=== PATIENT | male | born 1970 | race Caucasian/White ===

== ENCOUNTER 2020-04-24 22:24 | Observation (INO) ==
--- NOTE | 2020-04-24 22:40 | DR.GENAD ---
HPI Time Seen Time Seen by Provider: 04/24/20 22:39 COVID-19 Coronavirus risk:travel/contact w/high risk person: No Has patient experienced Coronavirus symptoms: No Nurses notes reviewed Nurses Notes Review: Yes Source History Provided: Patient Mode of Arrival Mode of Arrival: Stretcher Timing Came on: Suddenly Duration Duration: Constant Duration: Hours Severity Severity: Moderate PMH PMH Past Medical History: Hypertension Past Surgical History: Yes Family History Family Medical History: Cancer Social History Do you use any recreational Drugs:: No ROS Review of Systems Constitutional: No Symptoms Reported and See HPI Eyes: No Symptoms Reported and See HPI ENTM: No Symptoms Reported and See HPI Respiratoy: No Symptoms Reported and See HPI Cardiovascular: No Symptoms Reported and See HPI Gastrointestinal/Abdominal: No Symptoms Reported Genitourinary: No Symptoms Reported and See HPI Neurological: No Symptoms Reported and See HPI Musculoskeletal: No Symptoms Reported and See HPI Integumentary: No Symptoms Reported and See HPI Hematologic/Lymphatic: No Symptoms Reported and See HPI Endocrine: No Symptoms Reported and See HPI Psychiatric: No Symptoms Reported and See HPI All Other Systems: Reviewed and Negative PE Vital Signs Vitals: Temperature 98.2 F Pulse Rate [Apical] 89 Pulse Rate 92 Respiratory Rate 18 Blood Pressure [Right Arm] 138/88 Blood Pressure 109/74 O2 Sat by Pulse Oximetry 98 General Limitations: No Limitations General Appearance: Alert and In No Apparent Distress Head Head Exam: Normal Inspection Eyes Eye exam: Normal Appearance and PERRL; negative Scleral Icterus and Conjunctival Injection ENT ENT Exam: Normal Exam, Normal Oropharynx, Normal External Ear Exam and TM's Normal Bilaterally External Ear Exam: Normal External Inspection; negative Mastoid Tenderness TM/Canal Exam: Bilateral: Normal Nose Exam: Normal Nose Exam; negative Sinus Tenderness Mouth Exam: Normal Inspection Throat Exam: Normal Inspection; negative Tonsillar Erythema, Tonsillar Exudate and L Peritonsillar Mass Neck Neck Exam: Normal Inspection and Trachea Midline; negative Tenderness and Lym phadenopathy Chest Chest Inspection: Normal Inspection and Symmetric Chest Wall Rise; negative Tenderness Respiratory Respiratory Exam: Normal Lung Sounds Bilat; negative Accessory Muscle Use, Chest Wall Tenderness and Respiratory Distress Respiratory Exam: Bilateral: Clear to Auscultation Cardiovascular Cardiovascular Exam: Regular Rate, Normal Rhythm and Normal Heart Sounds; negative Systolic Murmur and Diastolic Murmur Abdominal Exam Abdominal Exam: Normal Inspection, Normal Bowel Sounds and Soft; negative Tenderness Extremities Extremities Exam: Normal Inspection, Tenderness and Normal Capillary Refill; negative Edema and Calf Tenderness Back Back Exam: Normal Inspection; negative Tenderness, (R) CVA Tenderness and (L) CVA Tenderness Neurologic Neurological Exam: Alert, Oriented X3 and CN II-XII Intact; negative Motor Sensory Deficit Psychiatric Psychiatric Exam: Normal Affect and Normal Mood Skin Skin Exam: Warm, Dry, Intact and Normal Color MDM Additional Information Additional Information Obtained From: Old Records and Family Differential Diagnosis Differential Diagnosis: RIGHT SIDED WEAKNESS, DYSARTHRIA, TIA, COURSE Treatment Treatment: SEE ORDERS. Education/Counseling Education/Counseling: Patient and Family Educated On: Diagnosis ROR Labs Reviewed Laboratory Results Reviewed?: Yes Result Diagrams: 04/24/20 23:14 04/24/20 23:14 Laboratory: WBC 7.8 X10^3/uL (3.6-10.0) 04/24/20 23:14 RBC 4.77 X10^6/uL (4.7-6.0) 04/24/20 23:14 Hgb 13.4 g/dL (13.5-18.0) L 04/24/20 23:14 Hct 41.3 % (42.0-54.0) L 04/24/20 23:14 MCV 86.7 fL (80.0-100.0) 04/24/20 23:14 MCH 28.0 pg (27.0-34.0) 04/24/20 23:14 MCHC 32.3 g/dL (33.0-35.0) L 04/24/20 23:14 RDW 18.8 % (11.6-16.5) H 04/24/20 23:14 Plt Count 202 X10^3/uL (150.0-450.0) 04/24/20 23:14 MPV 8.3 fL (7.4-11.0) 04/24/20 23:14 Neut % (Auto) 70.7 % (42.0-75.0) 04/24/20 23:14 Lymph % (Auto) 18.4 % (21.0-51.0) L 04/24/20 23:14 [place] % (Auto) 7.4 % (0.0-13.0) 04/24/20 23:14 Eos % (Auto) 2.5 % (0.9-2.9) 04/24/20 23:14 Baso % (Auto) 1.0 % (0.2-1.0) 04/24/20 23:14 Neut # (Auto) 5.5 x10^3/uL (2.2-4.8) H 04/24/20 23:14 Lymph # (Auto) 1.4 X10^3/uL (1.3-2.9) 04/24/20 23:14 [place] # (Auto) 0.6 x10^3/uL (0.3-0.8) 04/24/20 23:14 Eos # (Auto) 0.2 x10^3/uL (0.0-0.2) 04/24/20 23:14 Baso # (Auto) 0.1 X10^3/uL (0.0-0.1) 04/24/20 23:14 Absolute Nucleated RBC 0.0 /100WBC 04/24/20 23:14 Sodium 143 mmol/L (136-145) 04/24/20 23:14 Corrected Sodium TNP 04/24/20 23:14 Potassium 4.0 mmol/L (3.5-5.1) 04/24/20 23:14 Chloride 106 mmol/L (98-107) 04/24/20 23:14 Carbon Dioxide 28.2 mmol/L (21-32) 04/24/20 23:14 BUN 17 mg/dL (7-18) 04/24/20 23:14 Creatinine 1.38 mg/dL (0.70-1.30) H 04/24/20 23:14 Est GFR (MDRD) Af Amer > 60 (>60) 04/24/20 23:14 Est GFR (MDRD) Non-Af 58 (>60) L 04/24/20 23:14 Glucose 103 mg/dL (65-99) H 04/24/20 23:14 Calcium 8.2 mg/dL (8.5-10.1) L 04/24/20 23:14 Corrected Calcium 8.8 mg/dL (8.5-10.1) 04/24/20 23:14 Total Bilirubin 0.70 mg/dL (0.2-1.0) 04/24/20 23:14 AST 20 Units/L (15-37) 04/24/20 23:14 ALT 19 Units/L (12-78) 04/24/20 23:14 Alkaline Phosphatase 107 Units/L (46-116) 04/24/20 23:14 Creatine Kinase 63 Units/L (39-308) 04/25/20 02:05 CK-MB (CK-2) 1.9 ng/mL (0-4.0) 04/25/20 02:05 CK/CKMB % Calc 3.0 % (<4) 04/25/20 02:05 Troponin I 0.04 ng/mL (0-1.5) 04/25/20 02:05 Total Protein 6.5 g/dL (6.4-8.2) 04/24/20 23:14 Albumin 3.2 g/dL (3.4-5.0) L 04/24/20 23:14 Globulin 3.3 g/dL (2.5-4.5) 04/24/20 23:14 Albumin/Globulin Ratio 1.0 Ratio (1.1-2.1) L 04/24/20 23:14 Specimen Type Clean catch urine 04/24/20 22:55 Urine Color Yellow (YELLOW) 04/24/20 22:55 Urine Appearance Clear (CLEAR) 04/24/20 22:55 Urine pH 6.0 (5.0 - 8.0) 04/24/20 22:55 Ur Specific [place] 1.015 (1.000-1.030) 04/24/20 22:55 Urine Protein 1+ (NEGATIVE) 04/24/20 22:55 Urine Glucose (UA) Negative (NEGATIVE) 04/24/20 22:55 Urine Ketones Negative (NEGATIVE) 04/24/20 22:55 Urine Occult Blood Negative (NEGATIVE) 04/24/20 22:55 Urine Nitrite Negative (NEGATIVE) 04/24/20 22:55 Urine Bilirubin Negative (NEGATIVE) 04/24/20 22:55 Urine Urobilinogen Normal (NORMAL) 04/24/20 22:55 Ur Leukocyte Esterase Negative (NEGATIVE) 04/24/20 22:55 Urine RBC None seen /HPF (0-3) 04/24/20 22:55 Urine WBC None seen /HPF (0-5) 04/24/20 22:55 Ur Squamous Epith Cells Rare /HPF (NEGATIVE) 04/24/20 22:55 Urine Bacteria Negative /HPF (NEGATIVE) 04/24/20 22:55 Ur Culture Indicated? No/not indicated 04/24/20 22:55 Urine Opiates Screen Negative (NEG=<300) 04/24/20 22:55 Urine Methadone Screen Negative (NEG=<300) 04/24/20 22:55 Ur Barbiturates Screen Negative (NEG=<200) 04/24/20 22:55 Ur Phencyclidine Scrn Negative (NEG=<25) 04/24/20 22:55 Ur Amphetamines Screen Negative (NEG=<1000) 04/24/20 22:55 U Benzodiazepines Scrn Negative (NEG=<200) 04/24/20 22:55 Urine Cocaine Screen Negative (NEG=<300) 04/24/20 22:55 U Marijuana (THC) Screen Positive (NEG=<50) A 04/24/20 22:55 XRAY XRAY Interpreted by: Radiologist (REPORT NOTED AND DISCUSSED WITH PATIENT.) and Self (NO ACUTE FINDINGS.) EKG Rate: 86 [place]: Normal Rhythm: NSR Block: None and AVB Hypertrophy: None and LAE ST: Normal Opioid Opioid Risk Tool Age (Jv box if 16-45): No History of Preadolescent Sexual Abuse: No Total: 0 Total Score Risk Category: Low Risk Copyright: Masoud JIMENEZ predicting aberrant behaviors Diagnosis Discharge Problem: Right sided weakness, Abnormal ECG, Abnormal cardiac enzyme level Instructions Forms: Excuse From Work Precautions for COVID19 Patient Portal Social Distancing
[2020-04-24 22:48] VITALS: BMI 33.5
--- NOTE | 2020-04-24 23:23 | CT ---
HISTORYStatus post fallSTUDYBRAIN W/O CONCOMPARISONNoneTECHNIQUEContiguous axial sections were obtained from the craniovertebral junction through the vertex using brain and bone algorithms. IV contrast was not administered. Dose reduction techniques including Automated Exposure Control (AEC) and adjustment of mA and kV were utilized.FINDINGSNo focal soft tissue swelling/hematoma identified. The brain and ventricles are normal in appearance without evidence of mass, hemorrhage, hydrocephalus, or other lesion.The calvarium and the cranial base including the sella, middle ears, and mastoids are unremarkable.The visualized orbits are within normal limits. Minimal mucosal thickening of the left maxillary sinus.IMPRESSIONNo acute intracranial process.Mild sinus disease as detailed.Electronically signed by: Jessica Arceo (Apr 24, 2020 23:22:23)
--- NOTE | 2020-04-24 23:27 | RAD ---
HISTORYPT STATES" I WAS GETTING IN THE BED AND WAS PULLING THE COVER UP AND I FELL OFF THE BED. I COULDN'T MOVE MY RT SIDE IT WAS STRANGE"STUDYCHEST, 1 [id number] trachea is midline. The cardiac silhouette is enlarged, similar to prior exam. The lungs are clear without focal infiltrate or effusion. The bony thorax is unremarkable.IMPRESSIONStable cardiomegaly.Electronically signed by: Jessica Arceo (Apr 24, 2020 23:25:45)
[2020-04-24 23:30] LABS: BILIRUBIN,URINE NEGATIVE (NEGATIVE); BLOOD/HEMOGLOBIN,URINE NEGATIVE (NEGATIVE); GLUCOSE, URINE NEGATIVE (NEGATIVE); KETONES,URINE NEGATIVE (NEGATIVE); LEUKOCYTE ESTERASE ,URINE NEGATIVE (NEGATIVE); NITRITES,URINE NEGATIVE (NEGATIVE); PROTEIN,URINE 1+ (NEGATIVE); UROBILINOGEN,URINE NORMAL (NORMAL)
[2020-04-24 23:31] LABS: BASOPHILS # (AUTO) 0.1 X10^3/uL (0.0-0.1); EOSINOPHILS # (AUTO) 0.2 x10^3/uL (0.0-0.2); EOSINOPHILS % (AUTO) 2.5 % (0.9-2.9); HEMATOCRIT 41.3 % (42.0-54.0); HEMOGLOBIN 13.4 g/dL (13.5-18.0); LYMPHOCYTES # (AUTO) 1.4 X10^3/uL (1.3-2.9); LYMPHOCYTES % (AUTO) 18.4 % (21.0-51.0); MEAN CORPUSCULAR HGB CONC 32.3 g/dL (33.0-35.0); MEAN CORPUSCULAR VOLUME 86.7 fL (80.0-100.0); MEAN PLATELET VOLUME 8.3 fL (7.4-11.0); MONOCYTES # (AUTO) 0.6 x10^3/uL (0.3-0.8); MONOCYTES % (AUTO) 7.4 % (0.0-13.0); NEUTROPHILS # (AUTO) 5.5 x10^3/uL (2.2-4.8); NEUTROPHILS % (AUTO) 70.7 % (42.0-75.0); PLATELET COUNT 202 X10^3/uL (150.0-450.0); RED BLOOD COUNT 4.77 X10^6/uL (4.7-6.0); RED CELL DISTRIBUTION WIDTH 18.8 % (11.6-16.5); WHITE BLOOD COUNT 7.8 X10^3/uL (3.6-10.0)
[2020-04-24 23:45] LABS: APPEARANCE,URINE CLEAR (CLEAR); BACTERIA,URINE NEGATIVE /HPF (NEGATIVE); COLOR,URINE YELLOW (YELLOW); RBC,URINE NONE SEEN /HPF (0-3); SQUAMOUS EPITHELIAL CELL,UR RARE /HPF (NEGATIVE)
[2020-04-24 23:47] LABS: BLOOD UREA NITROGEN 17 mg/dL (7-18); CALCIUM 8.2 mg/dL (8.5-10.1); CARBON DIOXIDE 28.2 mmol/L (21-32); CHLORIDE 106 mmol/L (98-107); CREATININE 1.38 mg/dL (0.70-1.30); SODIUM 143 mmol/L (136-145); TROPONIN I 0.04 ng/mL (0-1.5); eGFR NON BLACK RACES 58 (>60)
[2020-04-24 23:51] LABS: ALANINE AMINOTRANSFERASE 19 Units/L (12-78); ALBUMIN 3.2 g/dL (3.4-5.0); ALKALINE PHOSPHATASE 107 Units/L (46-116); ASPARTATE AMINO TRANSFERASE 20 Units/L (15-37); CKMB % 3.4 % (<4); COR CA(FOR HYPOALB) 8.8 mg/dL (8.5-10.1); CREATINE KINASE 67 Units/L (39-308); CREATINE KINASE MB 2.3 ng/mL (0-4.0); TOTAL PROTEIN 6.5 g/dL (6.4-8.2)
[2020-04-25 02:29] LABS: CREATINE KINASE MB 1.9 ng/mL (0-4.0); TROPONIN I 0.04 ng/mL (0-1.5)
[2020-04-25] MEDS ORDERED: ASPIRIN 81 MG CHEWTAB PO ONE ×2 (03:39→03:44)
[2020-04-25] MEDS ORDERED: ASPIRIN 81 MG CHEWTAB ONE ×2 (03:40→03:46)
[2020-04-25] MEDS ORDERED: NS 1000 ML 1,000 ML IV SCH (08:00)
[2020-04-25] MEDS ORDERED: ATIVAN INJ 2 MG VIAL ONE (09:09)
[2020-04-25] MEDS ORDERED: ATIVAN INJ 2 MG VIAL IVP ONE (09:30)
--- NOTE | 2020-04-25 10:13 | MRI ---
HISTORYRT SIDED WEAKNESSSTUDYBRAIN W/O CONCOMPARISONCT brain dated 04/24/2020TECHNIQUEMultiplanar multi sequences images through the brain were performed without contrastFINDINGSVentricles are normal in size and symmetric, there is an acute infarct involving the lateral aspect of the left thalamus as well as the medial left temporal lobe,with signal on diffusion with restriction. There is mild high signal on FLAIR images suggestive of more than 24 hours. There is minimal periventricular white matter changes. No extra-axial collections. There is no abnormal intraparenchymal susceptibility artifact. Tiny mucous retention cyst in the left maxillary sinus. There is midline anatomy. No sellar masses. No nasopharyngeal masses the cervicocranial junction is unremarkableThe main arterial and venous flow voids are present. No abnormal signal in the mastoid cells and included paranasal sinuses. No orbital masses.IMPRESSIONAcute infarct with restricted diffusion involving the lateral nucleus of the left thalamus and the medial left temporal bone lobe consider [employer]ARM[employer] STOCK CLERK distribution. No acute hemorrhage. No mass effect.Electronically signed by: Merly Hinson (Apr 25, 2020 10:12:14)
[2020-04-25] MEDS ORDERED: LIPITOR TAB 40 MG PO SCH (11:00)
[2020-04-25 12:08] LABS: CKMB % 2.7 % (<4); CREATINE KINASE MB 1.7 ng/mL (0-4.0); TROPONIN I 0.03 ng/mL (0-1.5)
[2020-04-25] MEDS: PROTONIX INJ 40 MG VIAL IVP SCH (12:47)
[2020-04-25] MEDS: ASPIRIN PO SCH ×2 (12:47→12:48)
--- NOTE | 2020-04-25 14:41 | DR.H&P ---
H&P History & Physical for Day of: H&P Date: 04/25/20 Chief Complaint Chief Complaint: right sided weakness Allergies Allergies Allergy/AdvReac Type Severity Reaction Status Date / Time No Known Drug Allergies Allergy Verified 05/06/19 10:12 History of Present Illness History of Present Illness: Mr. Rocha is a 49y/o male with a PMH of non-ischemic cardiomyopathy with EF 15-20%, HTN, HLD, hx of amphetamine use, liver cirrhosis, atrial fibrillation presented with right sided weakness. Patient states he was in bed and talking on the phone when he felt like he could not move his right sided. He was trying to grab the sheet but his hand was weak. He ended up fa lling on the floor and his family brought him to ED. He also had slurred speech. ED work-up: - CT-head: neg for acute process - CXR: stable cardiomegaly -Labs: Cr: 1.38 UDS: marijuana EKG: no acute ST changes. Trop 0.04, 0.03, 0.03 Plan: order MRI to rule out stroke, carotid U/S, echo, neurochecks q1hr, monitor on telemetry. Continue asa and lipitor. PT/OT, speech therapy. Obtain cardiology records from [facility]. Past Medical History Past Medical History: Dyslipidemia, Hypertension and Liver Disease Additional Medical History: Atrial fibrillation Past Surgical History Surgical History: Abdominal Surgery Family History Family Medical History: Cancer, OR, Coronary Artery Disease and Hypertension Social History Does patient currently use any type of tobacco product: Yes Have you used tobacco products in the last 12 months: Yes Type of Tobacco Use: Cigarettes Does any household member use tobacco: Yes Alcohol Use: None Drug Use: Marijuana Medications Home Medications: No Known Drug Allergies Allergy (Verified 05/06/19 10:12) CONTINUE taking the following medications carvedilol 6.25 mg PO BID 04/25/20 [History] furosemide 40 mg PO DAILY 04/25/20 [History] losartan 100 mg PO DAILY 04/25/20 [History] potassium chloride 20 meq PO DAILY 04/25/20 [History] Labs Result Diagrams: 04/26/20 04:47 04/26/20 04:47 Labs: Laboratory WBC 7.8 X10^3/uL (3.6-10.0) 04/24/20 23:14 RBC 4.77 X10^6/uL (4.7-6.0) 04/24/20 23:14 Hgb 13.4 g/dL (13.5-18.0) L 04/24/20 23:14 Hct 41.3 % (42.0-54.0) L 04/24/20 23:14 MCV 86.7 fL (80.0-100.0) 04/24/20 23:14 MCH 28.0 pg (27.0-34.0) 04/24/20 23:14 MCHC 32.3 g/dL (33.0-35.0) L 04/24/20 23:14 RDW 18.8 % (11.6-16.5) H 04/24/20 23:14 Plt Count 202 X10^3/uL (150.0-450.0) 04/24/20 23:14 MPV 8.3 fL (7.4-11.0) 04/24/20 23:14 Neut % (Auto) 70.7 % (42.0-75.0) 04/24/20 23:14 Lymph % (Auto) 18.4 % (21.0-51.0) L 04/24/20 23:14 [place] % (Auto) 7.4 % (0.0-13.0) 04/24/20 23:14 Eos % (Auto) 2.5 % (0.9-2.9) 04/24/20 23:14 Baso % (Auto) 1.0 % (0.2-1.0) 04/24/20 23:14 Neut # (Auto) 5.5 x10^3/uL (2.2-4.8) H 04/24/20 23:14 Lymph # (Auto) 1.4 X10^3/uL (1.3-2.9) 04/24/20 23:14 [place] # (Auto) 0.6 x10^3/uL (0.3-0.8) 04/24/20 23:14 Eos # (Auto) 0.2 x10^3/uL (0.0-0.2) 04/24/20 23:14 Baso # (Auto) 0.1 X10^3/uL (0.0-0.1) 04/24/20 23:14 Absolute Nucleated RBC 0.0 /100WBC 04/24/20 23:14 Sodium 143 mmol/L (136-145) 04/24/20 23:14 Corrected Sodium TNP 04/24/20 23:14 Potassium 4.0 mmol/L (3.5-5.1) 04/24/20 23:14 Chloride 106 mmol/L (98-107) 04/24/20 23:14 Carbon Dioxide 28.2 mmol/L (21-32) 04/24/20 23:14 BUN 17 mg/dL (7-18) 04/24/20 23:14 Creatinine 1.38 mg/dL (0.70-1.30) H 04/24/20 23:14 Est GFR (MDRD) Af Amer > 60 (>60) 04/24/20 23:14 Est GFR (MDRD) Non-Af 58 (>60) L 04/24/20 23:14 Glucose 103 mg/dL (65-99) H 04/24/20 23:14 Calcium 8.2 mg/dL (8.5-10.1) L 04/24/20 23:14 Corrected Calcium 8.8 mg/dL (8.5-10.1) 04/24/20 23:14 Total Bilirubin 0.70 mg/dL (0.2-1.0) 04/24/20 23:14 AST 20 Units/L (15-37) 04/24/20 23:14 ALT 19 Units/L (12-78) 04/24/20 23:14 Alkaline Phosphatase 107 Units/L (46-116) 04/24/20 23:14 Creatine Kinase 63 Units/L (39-308) 04/25/20 11:10 CK-MB (CK-2) 1.7 ng/mL (0-4.0) 04/25/20 11:10 CK/CKMB % Calc 2.7 % (<4) 04/25/20 11:10 Troponin I 0.03 ng/mL (0-1.5) 04/25/20 11:10 Total Protein 6.5 g/dL (6.4-8.2) 04/24/20 23:14 Albumin 3.2 g/dL (3.4-5.0) L 04/24/20 23:14 Globulin 3.3 g/dL (2.5-4.5) 04/24/20 23:14 Albumin/Globulin Ratio 1.0 Ratio (1.1-2.1) L 04/24/20 23:14 Specimen Type Clean catch urine 04/24/20 22:55 Urine Color Yellow (YELLOW) 04/24/20 22:55 Urine Appearance Clear (CLEAR) 04/24/20 22:55 Urine pH 6.0 (5.0 - 8.0) 04/24/20 22:55 Ur Specific [place] 1.015 (1.000-1.030) 04/24/20 22:55 Urine Protein 1+ (NEGATIVE) 04/24/20 22:55 Urine Glucose (UA) Negative (NEGATIVE) 04/24/20 22: Urine Ketones Negative (NEGATIVE) 04/24/20 22:55 Urine Occult Blood Negative (NEGATIVE) 04/24/20 22:55 Urine Nitrite Negative (NEGATIVE) 04/24/20 22:55 Urine Bilirubin Negative (NEGATIVE) 04/24/20 22:55 Urine Urobilinogen Normal (NORMAL) 04/24/20 22:55 Ur Leukocyte Esterase Negative (NEGATIVE) 04/24/20 22:55 Urine RBC None seen /HPF (0-3) 04/24/20 22:55 Urine WBC None seen /HPF (0-5) 04/24/20 22:55 Ur Squamous Epith Cells Rare /HPF (NEGATIVE) 04/24/20 22:55 Urine Bacteria Negative /HPF (NEGATIVE) 04/24/20 22:55 Ur Culture Indicated? No/not indicated 04/24/20 22:55 Urine Opiates Screen Negative (NEG=<300) 04/24/20 22:55 Urine Methadone Screen Negative (NEG=<300) 04/24/20 22:55 Ur Barbiturates Screen Negative (NEG=<200) 04/24/20 22:55 Ur Phencyclidine Scrn Negative (NEG=<25) 04/24/20 22:55 Ur Amphetamines Screen Negative (NEG=<1000) 04/24/20 22:55 U Benzodiazepines Scrn Negative (NEG=<200) 04/24/20 22:55 Urine Cocaine Screen Negative (NEG=<300) 04/24/20 22:55 U Marijuana (THC) Screen Positive (NEG=<50) A 04/24/20 22:55 Review of Systems Constitutional: Weakness Eyes: No Symptoms Reported ENT: No Symptoms Reported Respiratory: Shortness of Breath and SOB with Excertion Cardiovascular: Orthopnea Gastrointestinal: No Symptoms Reported Genitourinary: No Symptoms Reported Musculoskeletal: Arm Pain, Hand Pain and Leg Pain Skin: No Symptoms Reported Neurological: Weakness, Incoordination, Change in Speech and Confusion Physical Exam Vital Signs: Temperature 97.5 F Pulse Rate [Radial] 97 Pulse Rate [Apical] 89 Pulse Rate 85 Respiratory Rate 20 Blood Pressure [Right Arm] 131/84 Blood Pressure 113/75 O2 Sat by Pulse Oximetry 100 Oriented: Normal Eyes: Normal Ear: Normal Nose: Normal Throat: Normal Respiratory: RLL Rales and LLL Rales Cardiovascular: Tachycardia Auscultation: Bowel Sounds: Normal Palpation: Normal and Liver Enlarged Tenderness: Normal and Other (abdomen distended ) Skin: Normal Musculoskeletal: Normal, Right, Left, Arm, Hand and Leg Psychiatric: Anxiety Mood Description: Anxious Affect: Normal Speech Pattern: Clear and Delayed Assessment/Plan (1) Acute ischemic stroke: Status: Acute (2) Right sided weakness: Status: Acute (3) Hypertension, uncontrolled: Status: Chronic (4) Dilated cardiomyopathy: Status: Acute (5) Cirrhosis: Qualifiers: Ascites presence: unspecified Hepatic cirrhosis type: unspecified hepatic cirrhosis Qualified Code(s): K74.60 - Unspecified cirrhosis of liver Status: Acute (6) Amphetamine abuse: Status: Acute Review H&P Reviewed: Yes Patient was examined?: Yes
[2020-04-25] MEDS: COREG TAB 6.25 MG PO SCH ×2 (14:58→21:36)
--- NOTE | 2020-04-25 15:32 | VAS ---
HISTORYSYNCOPE/CVA. Concern for carotid artery stenosis.EXAM: BILATERAL DOPPLER CAROTID ULTRASOUND EXAMTechnique: Multiple laws scale and color flow Doppler images of the right and left carotid arterial system were obtained. The vertebral arterial system was evaluated as well.Findings:Nonocclusive color flow Doppler is seen throughout the right and left carotid arterial system. No hemodynamically significant carotid arterial stenosis is seen based on velocity criteria. There is mild carotid atherosclerosis and soft atherosclerotic plaque formation of the bilateral carotid bulbs and ICAs with associated intimal thickening but [without] evidence for high-grade stenosis (>70%) or occlusion of the carotid arteries. The right and left vertebral artery demonstrate antegrade flow.IMPRESSION:Mild atherosclerosis and soft atherosclerotic plaque formation of the bilateral carotid bulbs and [in both] ICAs with associated carotid intimal thickening but without evidence for high-grade stenosis or occlusion of the carotid arteries, based on Doppler velocity criteria. Appropriate, antegrade, vertebral arterial flow.Peak right ICA velocity: 45 centimeter/seconds.Peak right CCA velocity: 46 centimeter/seconds.Peak left ICA velocity: 66 centimeter/seconds.Peak left CCA velocity: 59 centimeter/seconds.Right ICA to CCA ratio: 1.8.Left ICA to CCA ratio: 1.5.Electronically signed by: TODD CONTRERAS III (Apr 25, 2020 15:31:25)
[2020-04-25 18:30] LABS: CKMB % 2.7 % (<4); CREATINE KINASE MB 1.6 ng/mL (0-4.0); TROPONIN I 0.03 ng/mL (0-1.5)
[2020-04-25] MEDS: VISTARIL PO PRN (21:36)
[2020-04-26 05:42] LABS: BASOPHILS # (AUTO) 0.1 X10^3/uL (0.0-0.1); EOSINOPHILS # (AUTO) 0.2 x10^3/uL (0.0-0.2); EOSINOPHILS % (AUTO) 2.9 % (0.9-2.9); HEMATOCRIT 40.1 % (42.0-54.0); HEMOGLOBIN 13.2 g/dL (13.5-18.0); LYMPHOCYTES % (AUTO) 28.2 % (21.0-51.0); MEAN CORPUSCULAR HEMOGLOBIN 28.4 pg (27.0-34.0); MEAN CORPUSCULAR HGB CONC 32.8 g/dL (33.0-35.0); MEAN CORPUSCULAR VOLUME 86.5 fL (80.0-100.0); MEAN PLATELET VOLUME 8.5 fL (7.4-11.0); MONOCYTES # (AUTO) 0.4 x10^3/uL (0.3-0.8); MONOCYTES % (AUTO) 6.3 % (0.0-13.0); NEUTROPHILS # (AUTO) 4.3 x10^3/uL (2.2-4.8); NEUTROPHILS % (AUTO) 61.6 % (42.0-75.0); PLATELET COUNT 186 X10^3/uL (150.0-450.0); RED BLOOD COUNT 4.64 X10^6/uL (4.7-6.0); RED CELL DISTRIBUTION WIDTH 18.4 % (11.6-16.5)
[2020-04-26 05:58] LABS: ALANINE AMINOTRANSFERASE 18 Units/L (12-78); ALBUMIN 2.9 g/dL (3.4-5.0); ALKALINE PHOSPHATASE 95 Units/L (46-116); ASPARTATE AMINO TRANSFERASE 17 Units/L (15-37); BLOOD UREA NITROGEN 23 mg/dL (7-18); CALCIUM 8.4 mg/dL (8.5-10.1); CARBON DIOXIDE 27.7 mmol/L (21-32); CHLORIDE 105 mmol/L (98-107); CHOL/HDL RATIO 5.3 (0.0-5.0); CHOLESTEROL 105 mg/dL (0-200); COR CA(FOR HYPOALB) 9.3 mg/dL (8.5-10.1); CREATININE 1.42 mg/dL (0.70-1.30); HDL CHOLESTEROL 20 mg/dL (40-60); MAGNESIUM 1.6 mg/dL (1.7-2.9); SODIUM 139 mmol/L (136-145); TRIGLYCERIDES 50 mg/dL (0-150); eGFR NON BLACK RACES 56 (>60)
--- NOTE | 2020-04-26 09:17 | PCM.PROG ---
Progress Note Progress Note for Day of Date of Exam: 04/26/20 Subjective Subjective: Patient seen at bedside, no events overnight. Patient states he feels a lot better. His right and left sided weakness has improved. He did work with PT/OT yesterday. He is able to ambulate to the bathroom, denies dizziness or being unsteady. Motor strength 4/5 b/l in upper and lower ext, no slurring of speech. Patient still has some memory deficit, unable to recall details. MRI-brain: acute infarct in the post region, [employer] territory ECHO: dilated cardiomyopathy, EF 18% Carotid U/S: moderate plaque, no high-grade stenosis Plan: continue PT/OT, received some records from Dr. Baird's clinic. Patient EF in Oct was 15-20%, patient failed to follow up. Resume losartan 50 mg daily, la six 20 mg daily. Will start eliquis for stroke prevention with atrial fibrillation. Patient denies hx of bleeding, no hx of PUD. Replace Mg PO. Past Medical Family Social History Past Med/Fam/Surg Hx: No changes since H&P Allergies: Allergies No Known Drug Allergies Allergy (Verified 05/06/19 10:12) Review of Systems ROS: No change since H&P Vital Signs and I&O's Vital Signs: Temperature 98.6 F Pulse Rate [Radial] 83 Pulse Rate [Apical] 94 Pulse Rate 85 Respiratory Rate 23 Blood Pressure [Right Arm] 134/95 Blood Pressure 113/75 O2 Sat by Pulse Oximetry 99 Intake and Output: Intake & Output 04/23/20 04/24/20 04/25/20 04/26/20 23:59 23:59 23:59 23:59 Intake Total 682 / 682 300 / 300 Output Total 250 / 250 Balance 432 / 432 300 / 300 Physical Exam Oriented: Normal Eyes: Normal Ear: Normal Nose: Normal Throat: Normal Respiratory: Rales Cardiovascular: Tachycardia Auscultation: Bowel Sounds: Normal Tenderness: Normal and Other (abdomen distended ) Skin: Normal Musculoskeletal: Normal, Right, Left, Arm, Hand and Leg Psychiatric: Anxiety Mood Description: Anxious Affect: Normal Speech Pattern: Clear and Delayed Laboratory and Diagnostics Result Diagrams: 04/26/20 04:47 04/26/20 04:47 Labs: Laboratory WBC 7.0 X10^3/uL (3.6-10.0) 04/26/20 04:47 RBC 4.64 X10^6/uL (4.7-6.0) L 04/26/20 04:47 Hgb 13.2 g/dL (13.5-18.0) L 04/26/20 04:47 Hct 40.1 % (42.0-54.0) L 04/26/20 04:47 MCV 86.5 fL (80.0-100.0) 04/26/20 04:47 MCH 28.4 pg (27.0-34.0) 04/26/20 04:47 MCHC 32.8 g/dL (33.0-35.0) L 04/26/20 04:47 RDW 18.4 % (11.6-16.5) H 04/26/20 04:47 Plt Count 186 X10^3/uL (150.0-450.0) 04/26/20 04:47 MPV 8.5 fL (7.4-11.0) 04/26/20 04:47 Neut % (Auto) 61.6 % (42.0-75.0) 04/26/20 04:47 Lymph % (Auto) 28.2 % (21.0-51.0) 04/26/20 04:47 [place] % (Auto) 6.3 % (0.0-13.0) 04/26/20 04:47 Eos % (Auto) 2.9 % (0.9-2.9) 04/26/20 04:47 Baso % (Auto) 1.0 % (0.2-1.0) 04/26/20 04:47 Neut # (Auto) 4.3 x10^3/uL (2.2-4.8) 04/26/20 04:47 Lymph # (Auto) 2.0 X10^3/uL (1.3-2.9) 04/26/20 04:47 [place] # (Auto) 0.4 x10^3/uL (0.3-0.8) 04/26/20 04:47 Eos # (Auto) 0.2 x10^3/uL (0.0-0.2) 04/26/20 04:47 Baso # (Auto) 0.1 X10^3/uL (0.0-0.1) 04/26/20 04:47 Absolute Nucleated RBC 0.2 /100WBC 04/26/20 04:47 Sodium 139 mmol/L (136-145) 04/26/20 04:47 Corrected Sodium TNP 04/26/20 04:47 Potassium 4.2 mmol/L (3.5-5.1) 04/26/20 04:47 Chloride 105 mmol/L (98-107) 04/26/20 04:47 Carbon Dioxide 27.7 mmol/L (21-32) 04/26/20 04:47 BUN 23 mg/dL (7-18) H 04/26/20 04:47 Creatinine 1.42 mg/dL (0.70-1.30) H 04/26/20 04:47 Est GFR (MDRD) Af Amer > 60 (>60) 04/26/20 04:47 Est GFR (MDRD) Non-Af 56 (>60) L 04/26/20 04:47 Glucose 108 mg/dL (65-99) H 04/26/20 04:47 Calcium 8.4 mg/dL (8.5-10.1) L 04/26/20 04:47 Corrected Calcium 9.3 mg/dL (8.5-10.1) 04/26/20 04:47 Magnesium 1.6 mg/dL (1.7-2.9) L 04/26/20 04:47 Total Bilirubin 1.00 mg/dL (0.2-1.0) 04/26/20 04:47 AST 17 Units/L (15-37) 04/26/20 04:47 ALT 18 Units/L (12-78) 04/26/20 04:47 Alkaline Phosphatase 95 Units/L (46-116) 04/26/20 04:47 Creatine Kinase 59 Units/L (39-308) 04/25/20 17:47 CK-MB (CK-2) 1.6 ng/mL (0-4.0) 04/25/20 17:47 CK/CKMB % Calc 2.7 % (<4) 04/25/20 17:47 Troponin I 0.03 ng/mL (0-1.5) 04/25/20 17:47 Total Protein 6.0 g/dL (6.4-8.2) L 04/26/20 04:47 Albumin 2.9 g/dL (3.4-5.0) L 04/26/20 04:47 Globulin 3.1 g/dL (2.5-4.5) 04/26/20 04:47 Albumin/Globulin Ratio 0.9 Ratio (1.1-2.1) L 04/26/20 04:47 Triglycerides 50 mg/dL (0-150) 04/26/20 04:47 Cholesterol 105 mg/dL (0-200) 04/26/20 04:47 LDL Cholesterol, Calc 75 mg/dL (0-100) 04/26/20 04:47 HDL Cholesterol 20 mg/dL (40-60) L 04/26/20 04:47 Cholesterol/HDL Ratio 5.3 (0.0-5.0) H 04/26/20 04:47 Specimen Type Clean catch urine 04/24/20 22:55 Urine Color Yellow (YELLOW) 04/24/20 22:55 Urine Appearance Clear (CLEAR) 04/24/20 22: Urine pH 6.0 (5.0 - 8.0) 04/24/20 22:55 Ur Specific [place] 1.015 (1.000-1.030) 04/24/20 22:55 Urine Protein 1+ (NEGATIVE) 04/24/20 22:55 Urine Glucose (UA) Negative (NEGATIVE) 04/24/20 22:55 Urine Ketones Negative (NEGATIVE) 04/24/20 22:55 Urine Occult Blood Negative (NEGATIVE) 04/24/20 22:55 Urine Nitrite Negative (NEGATIVE) 04/24/20 22:55 Urine Bilirubin Negative (NEGATIVE) 04/24/20 22:55 Urine Urobilinogen Normal (NORMAL) 04/24/20 22:55 Ur Leukocyte Esterase Negative (NEGATIVE) 04/24/20 22:55 Urine RBC None seen /HPF (0-3) 04/24/20 22:55 Urine WBC None seen /HPF (0-5) 04/24/20 22:55 Ur Squamous Epith Cells Rare /HPF (NEGATIVE) 04/24/20 22:55 Urine Bacteria Negative /HPF (NEGATIVE) 04/24/20 22:55 Ur Culture Indicated? No/not indicated 04/24/20 22:55 Urine Opiates Screen Negative (NEG=<300) 04/24/20 22:55 Urine Methadone Screen Negative (NEG=<300) 04/24/20 22:55 Ur Barbiturates Screen Negative (NEG=<200) 04/24/20 22:55 Ur Phencyclidine Scrn Negative (NEG=<25) 04/24/20 22:55 Ur Amphetamines Screen Negative (NEG=<1000) 04/24/20 22:55 U Benzodiazepines Scrn Negative (NEG=<200) 04/24/20 22:55 Urine Cocaine Screen Negative (NEG=<300) 04/24/20 22:55 U Marijuana (THC) Screen Positive (NEG=<50) A 04/24/20 22:55 Plan (1) Acute ischemic stroke: Status: Acute (2) Right sided weakness: Status: Acute (3) Hypertension, uncontrolled: Status: Chronic (4) Dilated cardiomyopathy: Status: Acute (5) Cirrhosis: Status: Acute Qualifiers: Ascites presence: unspecified Hepatic cirrhosis type: unspecified hepatic cirrhosis Qualified Code(s): K74.60 - Unspecified cirrhosis of liver (6) Amphetamine abuse: Status: Acute
[2020-04-26] MEDS: LASIX PO SCH (09:45)
[2020-04-26] MEDS: PROTONIX INJ 40 MG VIAL IVP SCH (09:45)
[2020-04-26] MEDS: ELIQUIS PO SCH ×2 (09:45→21:01)
[2020-04-26] MEDS: LIPITOR TAB 40 MG PO SCH (09:46)
[2020-04-26] MEDS: COREG TAB 6.25 MG PO SCH ×2 (09:46→21:01)
[2020-04-26] MEDS: COZAAR PO SCH (09:46)
[2020-04-26] MEDS: ASPIRIN EC 81 MG PO SCH (09:46)
[2020-04-26] MEDS ORDERED: NICOTINE PATCH TD ONE (11:03)
[2020-04-26] MEDS: VISTARIL PO PRN ×2 (11:08→21:01)
[2020-04-26] MEDS: MAG-OX TAB PO SCH ×2 (11:09→17:29)
[2020-04-26] MEDS: NICOTINE PATCH TD SCH (11:10)
[2020-04-26] MEDS ORDERED: NITROSTAT ONE (16:48)
[2020-04-26] MEDS ORDERED: NITROSTAT SL PRN (16:48)
[2020-04-26 17:33] LABS: CKMB % 3.9 % (<4); CREATINE KINASE MB 2.2 ng/mL (0-4.0); TROPONIN I 0.04 ng/mL (0-1.5)
[2020-04-27] MEDS ORDERED: ZOFRAN TAB 4 MG SL PRN (01:22)
[2020-04-27] MEDS ORDERED: ZOFRAN TAB 4 MG ONE (01:23)
[2020-04-27] MEDS: COZAAR PO SCH (08:11)
[2020-04-27] MEDS: COREG TAB 6.25 MG PO SCH (08:11)
[2020-04-27] MEDS: MAG-OX TAB PO SCH (08:11)
[2020-04-27] MEDS: LIPITOR TAB 40 MG PO SCH (08:12)
[2020-04-27] MEDS: ELIQUIS PO SCH (08:12)
[2020-04-27] MEDS: ASPIRIN EC 81 MG PO SCH (08:12)
[2020-04-27] MEDS: LASIX PO SCH (08:12)
[2020-04-27] MEDS: NICOTINE PATCH TD SCH (08:13)
[2020-04-27 08:30] LABS: BASOPHILS # (AUTO) 0.1 X10^3/uL (0.0-0.1); BASOPHILS % (AUTO) 1.3 % (0.2-1.0); EOSINOPHILS # (AUTO) 0.2 x10^3/uL (0.0-0.2); EOSINOPHILS % (AUTO) 2.5 % (0.9-2.9); HEMATOCRIT 44.2 % (42.0-54.0); HEMOGLOBIN 14.1 g/dL (13.5-18.0); LYMPHOCYTES # (AUTO) 2.1 X10^3/uL (1.3-2.9); LYMPHOCYTES % (AUTO) 26.7 % (21.0-51.0); MEAN CORPUSCULAR HEMOGLOBIN 27.6 pg (27.0-34.0); MEAN CORPUSCULAR VOLUME 86.3 fL (80.0-100.0); MEAN PLATELET VOLUME 8.1 fL (7.4-11.0); MONOCYTES # (AUTO) 0.5 x10^3/uL (0.3-0.8); MONOCYTES % (AUTO) 6.7 % (0.0-13.0); NEUTROPHILS % (AUTO) 62.8 % (42.0-75.0); PLATELET COUNT 194 X10^3/uL (150.0-450.0); RED BLOOD COUNT 5.12 X10^6/uL (4.7-6.0); RED CELL DISTRIBUTION WIDTH 18.8 % (11.6-16.5)
[2020-04-27 08:32] LABS: BLOOD UREA NITROGEN 24 mg/dL (7-18); CALCIUM 8.7 mg/dL (8.5-10.1); CHLORIDE 105 mmol/L (98-107); CREATININE 1.53 mg/dL (0.70-1.30); SODIUM 140 mmol/L (136-145); eGFR NON BLACK RACES 51 (>60)
[2020-04-27] MEDS ORDERED: KAYEXALATE SUSP PO NR (09:00)
[2020-04-27] MEDS ORDERED: PROTONIX TAB 40 MG PO SCH (09:00)
--- NOTE | 2020-04-27 09:28 | W.DIS.FURT ---
Summary of Discharge Admission Diagnosis Patient Problems (Updated 04/26/20 @ 09:05 by Jaci Johnson) Acute ischemic stroke (Acute) I63.9 Amphetamine abuse (Acute) F15.10 Cirrhosis (Acute) K74.60 Dilated cardiomyopathy (Acute) I42.0 Right sided weakness (Acute) R53.1 Abnormal ECG (Acute) R94.31 Abnormal cardiac enzyme level (Acute) R74.8 Vital Signs: Vital Signs (72 hours) 04/24/20 22:24 04/24/20 23:30 04/25/20 00:00 Temperature 98.2 F Pulse Rate 84 Pulse Rate [Apical] 85 84 Pulse Rate [Radial] Respiratory Rate 18 16 16 Blood Pressure 125/80 Blood Pressure [Right Arm] 132/85 131/80 O2 Sat by Pulse Oximetry 99 98 98 04/25/20 03:46 04/25/20 04:00 04/25/20 05:14 Temperature Pulse Rate Pulse Rate [Apical] 88 93 H 69 Pulse Rate [Radial] Respiratory Rate 24 18 Blood Pressure Blood Pressure [Right Arm] 149/89 156/72 158/84 O2 Sat by Pulse Oximetry 98 97 99 04/25/20 06:35 04/25/20 06:41 04/25/20 06:45 Temperature Pulse Rate 95 H 94 H Pulse Rate [Apical] 89 Pulse Rate [Radial] Respiratory Rate 17 20 22 Blood Pressure Blood Pressure [Right Arm] 138/88 O2 Sat by Pulse Oximetry 99 100 98 04/25/20 07:00 04/25/20 07:15 04/25/20 07:30 Temperature Pulse Rate 95 H 122 H 92 H Pulse Rate [Apical] Pulse Rate [Radial] Respiratory Rate 32 H 22 18 Blood Pressure 127/91 109/74 Blood Pressure [Right Arm] O2 Sat by Pulse Oximetry 99 98 04/25/20 07:45 04/25/20 08:00 04/25/20 12:00 Temperature 97.5 F L Pulse Rate 89 85 Pulse Rate [Apical] Pulse Rate [Radial] 97 H Respiratory Rate 15 16 20 Blood Pressure 113/75 Blood Pressure [Right Arm] 131/84 O2 Sat by Pulse Oximetry 96 97 100 04/25/20 16:00 04/25/20 20:00 04/25/20 23:49 Temperature 97.6 F 97.9 F 97.2 F L Pulse Rate Pulse Rate [Apical] 94 H Pulse Rate [Radial] 85 94 H 92 H Respiratory Rate 20 22 23 Blood Pressure Blood Pressure [Right Arm] 136/74 151/90 104/62 O2 Sat by Pulse Oximetry 99 99 98 04/26/20 04:00 04/26/20 08:00 04/26/20 10:00 Temperature 98.6 F 97.6 F Pulse Rate Pulse Rate [Apical] Pulse Rate [Radial] 83 83 Respiratory Rate 23 20 Blood Pressure Blood Pressure [Right Arm] 134/95 98/57 137/84 O2 Sat by Pulse Oximetry 99 98 04/26/20 12:00 04/26/20 16:00 04/26/20 16:40 Temperature 97.9 F 97.6 F Pulse Rate Pulse Rate [Apical] Pulse Rate [Radial] 79 74 79 Respiratory Rate 20 20 18 Blood Pressure Blood Pressure [Right Arm] 131/75 118/97 130/79 O2 Sat by Pulse Oximetry 97 98 99 04/26/20 16:50 04/26/20 16:54 04/26/20 16:55 Temperature Pulse Rate Pulse Rate [Apical] Pulse Rate [Radial] 76 Respiratory Rate 24 22 22 Blood Pressure Blood Pressure [Right Arm] 114/68 O2 Sat by Pulse Oximetry 99 04/26/20 17:10 04/26/20 17:25 04/26/20 17:40 Temperature Pulse Rate Pulse Rate [Apical] Pulse Rate [Radial] 79 85 78 Respiratory Rate 18 18 Blood Pressure Blood Pressure [Right Arm] 108/72 130/71 112/75 O2 Sat by Pulse Oximetry 99 100 100 04/26/20 17:55 04/26/20 18:10 04/26/20 18:40 Temperature Pulse Rate Pulse Rate [Apical] Pulse Rate [Radial] 77 74 79 Respiratory Rate Blood Pressure Blood Pressure [Right Arm] 117/72 114/77 116/76 O2 Sat by Pulse Oximetry 100 99 99 04/26/20 19:57 04/26/20 23:54 04/27/20 04:00 Temperature 98.5 F 98.3 F Pulse Rate Pulse Rate [Apical] Pulse Rate [Radial] 69 70 81 Respiratory Rate 20 22 21 Blood Pressure Blood Pressure [Right Arm] 114/78 131/85 108/73 O2 Sat by Pulse Oximetry 94 L 98 97 Labs: Laboratory Last Values WBC 8.0 X10^3/uL (3.6-10.0) 04/27/20 08:15 RBC 5.12 X10^6/uL (4.7-6.0) 04/27/20 08:15 Hgb 14.1 g/dL (13.5-18.0) 04/27/20 08:15 Hct 44.2 % (42.0-54.0) 04/27/20 08:15 MCV 86.3 fL (80.0-100.0) 04/27/20 08:15 MCH 27.6 pg (27.0-34.0) 04/27/20 08:15 MCHC 32.0 g/dL (33.0-35.0) L 04/27/20 08:15 RDW 18.8 % (11.6-16.5) H 04/27/20 08:15 Plt Count 194 X10^3/uL (150.0-450.0) 04/27/20 08:15 MPV 8.1 fL (7.4-11.0) 04/27/20 08:15 Neut % (Auto) 62.8 % (42.0-75.0) 04/27/20 08:15 Lymph % (Auto) 26.7 % (21.0-51.0) 04/27/20 08:15 [place] % (Auto) 6.7 % (0.0-13.0) 04/27/20 08:15 Eos % (Auto) 2.5 % (0.9-2.9) 04/27/20 08:15 Baso % (Auto) 1.3 % (0.2-1.0) H 04/27/20 08:15 Neut # (Auto) 5.0 x10^3/uL (2.2-4.8) H 04/27/20 08:15 Lymph # (Auto) 2.1 X10^3/uL (1.3-2.9) 04/27/20 08:15 [place] # (Auto) 0.5 x10^3/uL (0.3-0.8) 04/27/20 08:15 Eos # (Auto) 0.2 x10^3/uL (0.0-0.2) 04/27/20 08:15 Baso # (Auto) 0.1 X10^3/uL (0.0-0.1) 04/27/20 08:15 Absolute Nucleated RBC 0.0 /100WBC 04/27/20 08:15 Sodium 140 mmol/L (136-145) 04/27/20 08:15 Corrected Sodium TNP 04/27/20 08:15 Potassium 5.2 mmol/L (3.5-5.1) H 04/27/20 08:15 Chloride 105 mmol/L (98-107) 04/27/20 08:15 Carbon Dioxide 28.0 mmol/L (21-32) 04/27/20 08:15 BUN 24 mg/dL (7-18) H 04/27/20 08:15 Creatinine 1.53 mg/dL (0.70-1.30) H 04/27/20 08:15 Est GFR (MDRD) Af Amer > 60 (>60) 04/27/20 08:15 Est GFR (MDRD) Non-Af 51 (>60) L 04/27/20 08:15 Glucose 101 mg/dL (65-99) H 04/27/20 08:15 Calcium 8.7 mg/dL (8.5-10.1) 04/27/20 08:15 Corrected Calcium 9.3 mg/dL (8.5-10.1) 04/26/20 04:47 Magnesium 1.8 mg/dL (1.7-2.9) 04/27/20 08:15 Total Bilirubin 1.00 mg/dL (0.2-1.0) 04/26/20 04:47 AST 17 Units/L (15-37) 04/26/20 04:47 ALT 18 Units/L (12-78) 04/26/20 04:47 Alkaline Phosphatase 95 Units/L (46-116) 04/26/20 04:47 Creatine Kinase 57 Units/L (39-308) 04/26/20 16:55 CK-MB (CK-2) 2.2 ng/mL (0-4.0) 04/26/20 16:55 CK/CKMB % Calc 3.9 % (<4) 04/26/20 16:55 Troponin I 0.04 ng/mL (0-1.5) 04/26/20 16:55 Total Protein 6.0 g/dL (6.4-8.2) L 04/26/20 04:47 Albumin 2.9 g/dL (3.4-5.0) L 04/26/20 04:47 Globulin 3.1 g/dL (2.5-4.5) 04/26/20 04:47 Albumin/Globulin Ratio 0.9 Ratio (1.1-2.1) L 04/26/20 04:47 Triglycerides 50 mg/dL (0-150) 04/26/20 04:47 Cholesterol 105 mg/dL (0-200) 04/26/20 04:47 LDL Cholesterol, Calc 75 mg/dL (0-100) 04/26/20 04:47 HDL Cholesterol 20 mg/dL (40-60) L 04/26/20 04:47 Cholesterol/HDL Ratio 5.3 (0.0-5.0) H 04/26/20 04:47 Specimen Type Clean catch urine 04/24/20 22:55 Urine Color Yellow (YELLOW) 04/24/20 22:55 Urine Appearance Clear (CLEAR) 04/24/20 22:55 Urine pH 6.0 (5.0 - 8.0) 04/24/20 22:55 Ur Specific [place] 1.015 (1.000-1.030) 04/24/20 22:55 Urine Protein 1+ (NEGATIVE) 04/24/20 22:55 Urine Glucose (UA) Negative (NEGATIVE) 04/24/20 22:55 Urine Ketones Negative (NEGATIVE) 04/24/20 22:55 Urine Occult Blood Negative (NEGATIVE) 04/24/20 22:55 Urine Nitrite Negative (NEGATIVE) 04/24/20 22:55 Urine Bilirubin Negative (NEGATIVE) 04/24/20 22:55 Urine Urobilinogen Normal (NORMAL) 04/24/20 22:55 Ur Leukocyte Esterase Negative (NEGATIVE) 04/24/20 22:55 Urine RBC None seen /HPF (0-3) 04/24/20 22:55 Urine WBC None seen /HPF (0-5) 04/24/20 22:55 Ur Squamous Epith Cells Rare /HPF (NEGATIVE) 04/24/20 22:55 Urine Bacteria Negative /HPF (NEGATIVE) 04/24/20 22:55 Ur Culture Indicated? No/not indicated 04/24/20 22:55 Urine Opiates Screen Negative (NEG=<300) 04/24/20 22:55 Urine Methadone Screen Negative (NEG=<300) 04/24/20 22:55 Ur Barbiturates Screen Negative (NEG=<200) 04/24/20 22:55 Ur Phencyclidine Scrn Negative (NEG=<25) 04/24/20 22:55 Ur Amphetamines Screen Negative (NEG=<1000) 04/24/20 22:55 U Benzodiazepines Scrn Negative (NEG=<200) 04/24/20 22:55 Urine Cocaine Screen Negative (NEG=<300) 04/24/20 22:55 U Marijuana (THC) Screen Positive (NEG=<50) A 04/24/20 22:55 Reason For Visit: RT SIDED WEAKNESS,ABNORMAL CARDIAC ENZYNME Discharge Diagnosis All Active Problems (Updated 04/26/20 @ 09:05 by Jaci Johnson) Acute ischemic stroke (Acute) Amphetamine abuse (Acute) Cirrhosis (Acute) Dilated cardiomyopathy (Acute) Right sided weakness (Acute) Abnormal ECG (Acute) Abnormal cardiac enzyme level (Acute) Hypertension, uncontrolled (Chronic) Plan of Treatment: Continue with present treatment and follow up plan. Pt is to keep follow up appointment as instructed and take medications as ordered. Discharge Medications Discharge Medications: No Known Drug Allergies Allergy (Verified 05/06/19 10:12) CONTINUE taking the following medications carvedilol 6.25 mg PO BID 04/25/20 [History] New Prescriptions apixaban [Eliquis] 5 mg PO BID 30 Days #60 tab 04/27/20 [Rx] aspirin 81 mg PO DAILY 30 Days #30 tab 04/27/20 [Rx] atorvastatin 20 mg PO DAILY 30 Days #30 tab 04/27/20 [Rx] furosemide 20 mg PO QAM 30 Days #30 tab 04/27/20 [Rx] losartan 50 mg PO DAILY 30 Days #30 tab 04/27/20 [Rx] pantoprazole 40 mg PO DAILY 30 Days #30 tab 04/27/20 [Rx]
[2020-04-27 10:30] VITALS: BP 120/76
== END 2020-04-27 11:10 | disposition home or self-care (01) ==
LOC: MED/SURG 22:24 → ER 22:24 → MED/SURG 04-25 10:00
PROVIDERS: ADMIT Internal Medicine; ATTEND Internal Medicine
DX: F15.10 Other stimulant abuse, uncomplicated; Z79.01 Long term (current) use of anticoagulants; R74.8 Abnormal levels of other serum enzymes; R94.31 Abnormal electrocardiogram [ECG] [EKG]; I48.91 Unspecified atrial fibrillation; K74.69 Other cirrhosis of liver; I11.9 Hypertensive heart disease without heart failure; R94.4 Abnormal results of kidney function studies; Z79.899 Other long term (current) drug therapy; F12.90 Cannabis use, unspecified, uncomplicated; I63.89 Other cerebral infarction; R06.02 Shortness of breath; Z72.0 Tobacco use; I42.0 Dilated cardiomyopathy
CPT/HCPCS: 36415; 70450; 70551; 71010; 71045; 80048; 80053; 80061; 80307; 81001; 82550; 82553; 83735; 84484; 85025; 92507; 92523; 92610; 93005; 93306; 93880; 94760; 96360; 96361; 96365; 96367; 96374; 97110; 97116; 97162; 97166; 99285; C9113; G0378; J2060; J7030; Q0177; S0119; S0181